=== PATIENT | female | born 1940 | race Caucasian/White ===

== ENCOUNTER 2016-09-26 06:33 | Emergency (ER) | payer OTHER ==
[2016-09-26 06:56] LABS: HCT 40.4 % (37.0-47.0); HGB 13.9 g/dl (12.5-16.0); LYMPHOCYTE 40.6 % (15-48); MCH 32.2 pg (25.0-31.0); MCHC 34.4 g/dL (32.0-36.0); MCV 93.5 fL (78.0-100.0); MONOCYTE 12.4 % (0-12); MPV 10.2 fL (6.0-9.5); PLT 213 K/uL (150-400); RBC 4.32 M/uL (4.20-5.40); RDW 13.5 % (11.5-14.0); WBC 8.7 K/uL (4.0-10.5)
[2016-09-26 07:01] LABS: INR 0.95 (0.9-1.2); PROTHROMBIN TIME 12.3 SECONDS (11.7-14.0); PTT 26.8 SECONDS (23.2-31.4)
[2016-09-26 07:08] LABS: ALBUMIN 3.2 g/dL (3.4-4.8); BILIRUBIN - TOTAL 0.4 mg/dL (0.1-1.0); CREATININE 1.1 mg/dL (0.5-1.0); GLOBULIN (CALCULATION) 2.4 g/dL (2.2-4.2); MAGNESIUM 1.86 mg/dL (1.40-2.10); POTASSIUM 3.5 mmol/L (3.5-5.1); TOTAL PROTEIN 5.6 g/dL (6.4-8.3)
[2016-09-26 07:11] LABS: CKMB 2.19 ng/mL (0.97-4.94); MYOGLOBIN 31 ng/mL (26-65); TROPONIN T < 0.010 ng/mL
[2016-09-26 07:14] LABS: PRO-BNP 603 pg/mL (0-450)
== END 2016-09-26 07:19 | disposition other institution (70) ==
LOC: FER 06:33
PROVIDERS: Emergency Medicine
DX: I21.19 ST elevation (STEMI) myocardial infarction involving other coronary artery of inferior wall (principal); I25.2 Old myocardial infarction; Z88.8 Allergy status to other drugs, medicaments and biological substances; Z95.0 Presence of cardiac pacemaker
CPT/HCPCS: 36415; 71010; 80053; 82550; 82553; 83735; 83874; 83880; 84484; 85025; 85610; 85730; 93005; J1644; J2270; J2405